=== PATIENT | female | born 1995 | race Caucasian/White ===

== ENCOUNTER 2020-05-02 11:13 | Emergency (ER) | payer SELFPAY ==
[2020-05-02] MEDS ORDERED: ACETAMINOPHEN 325 MG TABLET PO ONE (11:58)
--- NOTE | 2020-05-02 12:00 | ER Document Report ---
ED Medical Screen (RME) - General Chief Complaint: Flank Pain Stated Complaint: FLANK PAIN,PAINFUL URINATION Time Seen by Provider: 05/02/20 11:52 Mode of Arrival: Ambulatory Information source: Patient Notes: 5-year-old female presented to ED for complaint of right flank pain x5 days. She states she has not had any hematuria. She states she did take Bactrim for 2 days for some leftover antibiotics she had. She states she got a little better. She states her last menstrual period was April 18. She states she has a very frequent UTIs. 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 She does smoke three fourths a pack a day does not drink or use any drugs. Patient does have tenderness to the right flank around to the right pelvic area. [facility] - Related Data Allergies/Adverse Reactions: lamotrigine [From Lamictal] Allergy (Verified 05/02/20 11:59) Past Medical History - Social History Chew tobacco use (# tins/day): No Frequency of alcohol use: None Drug Abuse: None Physical Exam - Vital signs Vitals: Temp Pulse Resp BP Pulse Ox 98.2 F 110 H 16 129/84 H 97 05/02/20 11:19 05/02/20 11:19 05/02/20 11:19 05/02/20 11:19 05/02/20 11:19 Course - Vital Signs Vital signs: Temp Pulse Resp BP Pulse Ox 98.2 F 110 H 16 129/84 H 97 05/02/20 11:19 05/02/20 11:19 05/02/20 11:19 05/02/20 11:19 05/02/20 11:19
[2020-05-02] MEDS ORDERED: MORPHINE SULFATE 10 MG/ML INJ IV ONE (12:45)
[2020-05-02] MEDS ORDERED: KETOROLAC TROMETHAMINE INJ/PF 30 MG/1 ML SDV IV ONE (12:45)
[2020-05-02 12:47] LABS: ABSOLUTE BASOPHILS # (AUTO) 0.1 10^3/uL (0.0-0.2); ABSOLUTE EOSINOPHILS # (AUTO) 0.2 10^3/uL (0.0-0.6); ABSOLUTE LYMPHOCYTES (AUTO) 1.3 10^3/uL (0.5-4.7); ABSOLUTE MONOCYTES (AUTO) 0.6 10^3/uL (0.1-1.4); ABSOLUTE NEUT (AUTO) 3.8 10^3/uL (1.7-8.2); BASOPHILS % (AUTO) 0.9 % (0-2); EOSINOPHILS % (AUTO) 2.9 % (0-6); HEMATOCRIT 40.5 % (36.0-47.0); HEMOGLOBIN 14.2 g/dL (12.0-15.5); LYMPHOCYTES % (AUTO) 21.4 % (13-45); MEAN CORPUSCULAR HEMOGLOBIN 32.2 pg (27.0-33.4); MEAN CORPUSCULAR HGB CONC 35.1 g/dL (32.0-36.0); MEAN CORPUSCULAR VOLUME 92 fl (80-97); MONOCYTES % (AUTO) 10.7 % (3-13); PLATELET COUNT 274 10^3/uL (150-450); RED BLOOD COUNT 4.42 10^6/uL (3.72-5.28); RED CELL DISTRIBUTION WIDTH 12.4 % (11.5-14.0); SEGMENTED NEUTROPHILS % (AUTO) 64.1 % (42-78); TOTAL CELLS COUNTED % (AUTO) 100 %
[2020-05-02 12:57] LABS: APPEARANCE,URINE CLOUDY; BILIRUBIN,URINE NEGATIVE (NEGATIVE); COLOR,URINE AMBER; GLUCOSE, URINE NEGATIVE (NEGATIVE); KETONES,URINE NEGATIVE (NEGATIVE); LEUKOCYTE ESTERASE,URINE LARGE (NEGATIVE); NITRITE,URINE NEGATIVE (NEGATIVE); PROTEIN,URINE 30 mg/dL (NEGATIVE)
[2020-05-02 13:03] LABS: ALBUMIN 4.7 g/dL (3.5-5.0); ALKALINE PHOSPHATASE 74 U/L (38-126); ANION GAP 9 (5-19); ASPARTATE AMINO TRANSFERASE 16 U/L (14-36); BILIRUBIN,DIRECT 0.3 mg/dL (0.0-0.4); BILIRUBIN,TOTAL 0.5 mg/dL (0.2-1.3); BLOOD UREA NITROGEN 8 mg/dL (7-20); CALCIUM 9.8 mg/dL (8.4-10.2); CARBON DIOXIDE 24 mmol/L (22-30); CHLORIDE 105 mmol/L (98-107); GLUCOSE 97 mg/dL (75-110); POTASSIUM 5.1 mmol/L (3.6-5.0); TOTAL PROTEIN 7.9 g/dL (6.3-8.2)
--- NOTE | 2020-05-02 13:12 | ER Document Report ---
ED GI/ - General Chief Complaint: Flank Pain Stated Complaint: FLANK PAIN,PAINFUL URINATION Time Seen by Provider: 05/02/20 11:52 Mode of Arrival: Ambulatory Notes: HPI: Patient is a 25-year-old female that states around 5 days she had some right flank pain rating to her right lower groin. She states nausea without vomiting. She describes it as "sharp" and constant. No real aggravating relieving factors. Patient states she has a history of pyelonephritis in the past. She denies any personal family history of kidney stones. No fevers, cough, shortness of breath. ROS: See HPI All other review of systems reviewed and otherwise negative Reviewed vital signs and nursing note as charted by RN. PHYSICAL EXAM: CONSTITUTIONAL: Alert and oriented and responds appropriately to questions. Well-appearing; well-nourished HEAD: Normocephalic; atraumatic EYES: Sclerae non-icteric CARD: Regular rate and rhythm; no murmurs; symmetric distal pulses RESP: Normal chest excursion without splinting or tachypnea; breath sounds clear and equal bilaterally; ABD/GI: Normal bowel sounds; non-distended; soft, mild tenderness to the right lower quadrant with no palpable masses, rebound or guarding; no palpable organomegaly or masses BACK: The back appears normal and is non-tender to palpation; right-sided CVA tenderness with no swelling erythema EXT: Normal ROM in all joints; non-tender to palpation; no edema SKIN: No acute lesions noted NEURO: CN 2-12 intact; 5/5 bilateral upper and lower extremity strength with sensation intact to light touch PSYCH: The patient's mood and manner are appropriate. Grooming and personal hygiene are appropriate. - Related Data Allergies/Adverse Reactions: lamotrigine [From Lamictal] Allergy (Verified 05/02/20 11:59) Past Medical History - General Information source: Patient - Social History Smoking Status: Current Every Day Smoker Chew tobacco use (# tins/day): No Frequency of alcohol use: None Drug Abuse: None Family History: Reviewed & Not Pertinent Physical Exam - Vital signs Vitals: Temp Pulse Resp BP Pulse Ox 98.2 F 110 H 16 129/84 H 97 05/02/20 11:19 05/02/20 11:19 05/02/20 11:19 05/02/20 11:19 05/02/20 11:19 Course - Re-evaluation Re-evalutation: Given the above history and physical examination, we will obtain basic labs, urine analysis and test, renal colic CT scan, and reassess. We would like to evaluate for the possibility of pyelonephritis or infected kidney stone. Also in the differential is appendicitis. I do believe ovarian torsion or lung pathology to be much less likely. 05/02/20 14:08 Imaging and labs as recorded. Heart rate is currently 98. I will provide a dose of Rocephin as well as a liter of fluid. I do anticipate discharge given the pain control as well as the lack of any vomiting or fevers. Kidney function and white blood cell count as recorded. - Vital Signs Vital signs: Temp Pulse Resp BP Pulse Ox 98.2 F 110 H 16 129/84 H 97 05/02/20 11:19 05/02/20 11:19 05/02/20 11:19 05/02/20 11:19 05/02/20 11:19 - Laboratory Result Diagrams: 05/02/20 12:20 05/02/20 12:20 Laboratory results interpreted by me: 05/02/20 05/02/20 12:10 12:20 Potassium 5.1 H Lipase 21.7 L Urine Protein 30 H Urine Urobilinogen 4.0 H Ur Leukocyte Esterase LARGE H Discharge - Discharge Clinical Impression: Pyelonephritis Condition: Good Disposition: HOME, SELF-CARE Additional Instructions: Come back immediately for any increased pain, change in location or quality of pain, fevers or vomiting, or any other acute problems. Please make sure that you follow-up with the primary care physician and specialist as we have discussed. Prescriptions: Cephalexin Monohydrate [Keflex 500 mg Capsule] 500 mg PO Q6H 10 Days #30 capsule Cephalexin Monohydrate [Keflex 500 mg Capsule] 500 mg PO Q8H 10 Days #30 capsule Hydrocodone/Acetaminophen [[place] 5-325 mg Tablet] 1 tab PO Q8 #10 tablet
--- NOTE | 2020-05-02 13:57 | RADIOLOGY REPORT (SQ) ---
EXAM DESCRIPTION: CT ABD/PELVIS NO ORAL OR IV IMAGES COMPLETED DATE/TIME: 05/02/2020 12:31 pm REASON FOR STUDY: right flank pain. Posterior right lower quadrant pain. History of kidney infecti on. COMPARISON: None. TECHNIQUE: CT scan of the abdomen and pelvis performed without intravenous or oral contrast. Images reviewed with lung, soft tissue, and bone windows. Reconstructed coronal and sagittal MPR images revi ewed. All images stored on PACS. All CT scanners at this facility use dose modulation, iterative reconstruction, and/or weight based d osing when appropriate to reduce radiation dose to as low as reasonably achievable (ALARA). [facility]: Dose Right [facility]: CareDose [facility]: Dose Right [facility]: Teradose 4D [facility]: [employer] RADIATION DOSE: CT Rad equipment meets quality standard of care and radiation dose reduction techniq ues were employed. CTDIvol: 8.5 mGy. DLP: 464 mGy-cm.mGy. LIMITATIONS: None. FINDINGS: LOWER CHEST: No significant findings. No nodules or infiltrates. NON-CONTRASTED LIVER, SPLEEN, ADRENALS: Evaluation limited by lack of IV contrast. No identified sign ificant masses. PANCREAS: No masses. No peripancreatic inflammatory changes. GALLBLADDER: No identified stones by CT criteria. No inflammatory changes to suggest cholecystitis. RIGHT KIDNEY AND URETER: No suspicious masses. Assessment limited by lack of IV contrast. No signif icant calcifications. No hydronephrosis or hydroureter. LEFT KIDNEY AND URETER: No suspicious masses. Assessment limited by lack of IV contrast. No signifi cant calcifications. No hydronephrosis or hydroureter. AORTA AND RETROPERITONEUM: No aneurysm. No retroperitoneal masses or adenopathy. BOWEL AND PERITONEAL CAVITY: No obvious masses or inflammatory changes. No free fluid. APPENDIX: Normal. PELVIS, BLADDER, AND ABDOMINAL WALL:No abnormal masses. No free fluid. Bladder normal. BONES: No significant findings. OTHER: No other significant finding. IMPRESSION: No renal or ureteral calculi. Appendix is normal. No CT abnormality to explain the pat ient's symptoms. COMMENT: Quality ID # [id number]: Final reports with documentation of one or more dose reduction techniques (e.g., Automated exposure control, adjustment of the mA and/or kV according to patient size, use of iterative reconstruction technique) TECHNICAL DOCUMENTATION: JOB ID: [id number] [employer]- All Rights Reserved Reading location - IP/workstation name: [email or web address]
[2020-05-02] MEDS ORDERED: NORMAL SALINE 1000 ML 1,000 ML IV ONE (14:08)
[2020-05-02] MEDS ORDERED: CEFTRIAXONE 1 GM/D5W RTU 1 GM/50 ML RTUPB IV ONE (14:08)
[2020-05-02] MEDS ORDERED: OXYCODONE-ACETAMINOPHEN 5-325 MG TABLET PO ONE (14:45)
[2020-05-02 15:37] VITALS: BP 109/55
== END 2020-05-02 15:37 | disposition home or self-care (01) ==
LOC: ER 11:13
DX: N12 Tubulo-interstitial nephritis, not specified as acute or chronic (principal); R11.0 Nausea; R10.9 Unspecified abdominal pain; R10.813 Right lower quadrant abdominal tenderness; F17.200 Nicotine dependence, unspecified, uncomplicated; Z88.8 Allergy status to other drugs, medicaments and biological substances
CPT/HCPCS: 99285; 96361; 96375; 96365; 36415; 87086; 83690; 84703; 85025; 80053; 81001; 74176; J1885; J2270; J7030; J0696